=== PATIENT | female | born 1950 | race Caucasian/White ===

== ENCOUNTER 2017-08-28 20:15 | Emergency (ER) | payer OTHER ==
[2017-08-28 20:58] VITALS: BP 117/71; PULSE 121; TEMP 101; BMI 40.2
--- NOTE | 2017-08-28 21:06 | PDOC ---
History of Present Illness - General Chief Complaint: Cold Symptoms Stated Complaint: FLU LIKE SYMPTOMS Time Seen by Provider: 08/28/17 20:42 History Source: Patient - History of Present Illness Initial Comments: 08/28/17 21:01 65F with h/o HTN and multiple brain aneurisms including ruptured aneurism causing hemorrhagic stroke 5 years ago BIBA for generalized weakness and fever. Patient is ambulatory at baseline with some right-side motor and cognitive deficit at baseline. PAtient lives with son with Aide comes to help patient 12h a day every day. Aide thought patient couldn't walk on her own today so she called EMS. Past History - Past Medical History Allergies/Adverse Reactions: Allergies Allergy/AdvReac Type Severity Reaction Status Date / Time No Known Allergies Allergy Verified 08/28/17 20:56 Home Medications: Ambulatory Orders Amlodipine Besylate [Norvasc -] 5 mg PO DAILY 03/30/12 Calcium Carb/Vit D3/Minerals [Calcium +D & Min Chew Tab] 1 each PO DAILY Levetiracetam [Keppra Oral Solution -] 500 mg PO DAILY 03/30/12 Magnesium Hydrox 2400MG/30Ml [Milk Of Magnesia] 400 mg PO DAILY 03/30/12 Multivitamin [Multi-Day Vitamins] 1 each PO DAILY 03/30/12 Sertraline HCl [Zoloft] 50 mg PO DAILY 03/30/12 Polyethylene Glycol 3350 [Miralax 255 gm Btl] 17 gm PO DAILY #1 bottle 05/31/15 Oseltamivir Phosphate [Tamiflu] 75 mg PO BID #10 capsule 08/29/17 CVA: Yes Dementia: Yes HTN: Yes Hypercholesterolemia: Yes - Immunization History Td Vaccination: Yes TDAP Vaccination: Yes Immunization Up to Date: No - Suicide/Smoking/Psychosocial Hx Smoking Status: No Smoking History: Never smoked Have you smoked in the past 12 months: No Number of Cigarettes Smoked Daily: 0 Information on smoking cessation initiated: No Hx Alcohol Use: No Drug/Substance Use Hx: No Review of Systems - Review of Systems Able to Perform ROS?: No (dementia) *Physical Exam - Vital Signs Last Vital Signs Temp Pulse Resp BP Pulse Ox 101 F H 121 H 14 117/71 90 L 08/28/17 20:56 08/28/17 20:56 08/28/17 20:56 08/28/17 20:56 08/28/17 20:56 - Physical Exam General Appearance: Yes: Nourished, Appropriately Dressed, Apparent Distress HEENT: positive: EOMI, DELMAR, Normal ENT Inspection Neck: negative: Tender Respiratory/Chest: positive: Lungs Clear, Normal Breath Sounds. negative: Chest Tender, Respiratory Distress Cardiovascular: positive: Regular Rhythm, Regular Rate, S1, S2 Gastrointestinal/Abdominal: negative: Normal Bowel Sounds, Tender Musculoskeletal: positive: Normal Inspection Extremity: positive: Normal Capillary Refill, Normal Inspection, Normal Range of Motion Neurologic: positive: interactive media marketing director II-XII NML intact, Fully Oriented, Alert ED Treatment Course - LABORATORY CBC & Chemistry Diagram: 08/28/17 21:38 08/28/17 21:38 - RADIOLOGY Radiology Studies Ordered: Category Date Time Status HEAD CT WITHOUT CONTRAST [CT] Stat CT Scan 08/28/17 20:59 Ordered CHEST X-RAY PORTABLE* [RAD] Stat Radiology 08/28/17 20:58 Ordered Medical Decision Making - Medical Decision Making 08/28/17 23:04 65F with h/o HTN and multiple brain aneurisms including ruptured aneurism causing hemorrhagic stroke 5 years ago BIBA for generalized weakness and fever. Septic workup ordered. 08/28/17 23:13 08/29/17 01:40 All basic labs within normal limits. Head Ct: No CT evidence of acute intracranial hemorrhage. Bilateral middle cerebral artery bifurcation aneurysmectomies. Extensive left cerebral encephalomalacia. Right inferior frontal encephalomalacia Chronic left occipital/temporal cortical infarct. Chest and Abd CTA show no evidence of acute pathology in the chest, abdomen and pelvis. 08/29/17 01:41 08/29/17 04:48 Flu positive. gave tamiflu and D/C *DC/Admit/Observation/Transfer Diagnosis at time of Disposition: Influenza A virus present - Discharge Dispostion Disposition: HOME Admit: No - Prescriptions Prescriptions: Oseltamivir Phosphate [Tamiflu] 75 mg PO BID #10 capsule - Referrals Referrals: Brant Franklin MD [Primary Care Provider] - - Patient Instructions Printed Discharge Instructions: How to Avoid a Cold or Flu, Influenza, DI for Influenza -- Adult Additional Instructions: Please follow up with your primary physician within 1-2 days. Come back to the ER for any new, worsening or concerning symptoms - Post Discharge Activity
--- NOTE | 2017-08-28 21:12 | PDOC ---
Attending Attestation - Resident Resident Name: Nicolás Rivera - ED Attending Attestation I have performed the following: I have examined & evaluated the patient, The case was reviewed & discussed with the resident, I agree w/resident's findings & plan, Exceptions are as noted <Jese Leblanc - Last Filed: 08/28/17 21:12> - HPI HPI: 08/28/17 21:16 The patient is a 66 year old female, nonverbal, with a significant past medical history of multiple brain aneurysms, hemorrhagic stroke 5 years ago, hypertension, and dementia, who presents to the emergency department with son for evaluation of weakness and fever for the past 24 hours. The patients STRIP MINE SUPERVISOR reported to the patients son that his mother has been weak with walking and febrile since yesterday. Allergies: NKDA 08/28/17 21:17 Documentation prepared by Ifeoma Lua, acting as medical assistant prn for Jese Leblanc DO <Ifeoma Lua - Last Filed: 08/28/17 23:47>
[2017-08-28 21:51] LABS: BASO % 0.7 % (0-2.0); EOS % 0.1 % (0-4.5); HEMATOCRIT 44.3 % (32.4-45.2); HEMOGLOBIN 14.7 GM/dL (10.7-15.3); LYMPH % 18.1 % (8-40); MCH 30.1 pg (25.7-33.7); MCHC 33.3 g/dl (32.0-36.0); MEAN CELL VOLUME 90.5 fl (80-96); MEAN PLT VOLUME 8.1 fl (7.5-11.1); MONO % 7.8 % (3.8-10.2); NEUT % 73.3 % (42.8-82.8); PLATELET COUNT 300 K/MM3 (134-434); RDW 14.7 % (11.6-15.6); WHITE BLOOD COUNT 10.2 K/mm3 (4.0-10.0)
[2017-08-28 22:04] LABS: INR 1.19 (0.82-1.09); PROTHROMBIN TIME (PATIENT) 13.5 SEC (9.98-11.88)
[2017-08-28 22:06] LABS: ACTIVATED PTT 31.6 SECONDS (26.9-34.4)
[2017-08-28 22:11] LABS: URINE APPEARANCE SLCLOUDY; URINE BILIRUBIN NEGATIVE (NEGATIVE); URINE BLOOD NEGATIVE (NEGATIVE); URINE COLOR AMBER; URINE GLUCOSE (UA) NEGATIVE (NEGATIVE); URINE KETONE TRACE (NEGATIVE); URINE LEUK ESTERASE TRACE (NEGATIVE); URINE NITRITE NEGATIVE (NEGATIVE); URINE PROTEIN NEGATIVE (NEGATIVE)
[2017-08-28 22:16] LABS: EPI CELLS RARE /HPF (FEW); URINE BACTERIA RARE /hpf (NONE SEEN); URINE MUCUS RARE
[2017-08-28 22:36] LABS: ALBUMIN 3.5 g/dl (3.4-5.0); ANION GAP 9 (8-16); BILIRUBIN,TOTAL 0.6 mg/dL (0.2-1.0); BLOOD UREA NITROGEN 19 mg/dL (7-18); CALCIUM 8.5 mg/dL (8.5-10.1); CHLORIDE 101 mmol/L (98-107); CO2 25 mmol/L (21-32); CREATININE 1.2 mg/dL (0.55-1.02); GLUCOSE,RANDOM 164 mg/dL (74-106); SODIUM 135 mmol/L (136-145); TOT PROT 7.9 g/dl (6.4-8.2)
[2017-08-28 22:42] LABS: ALK PHOS 118 U/L (45-117); SGPT/ALT 82 U/L (12-78)
[2017-08-28 22:48] LABS: POTASSIUM 3.9 mmol/L (3.5-5.1); SGOT/AST 72 U/L (15-37)
[2017-08-29 00:35] LABS: VENOUS PC02 33.3 mmHg (38-52); VENOUS PH 7.45 (7.32-7.42); VENOUS PO2 45.2 mmHg (28-48)
[2017-08-29] MEDS ORDERED: OSELTAMIVIR PHOSPHATE 75 MG CAPSULE PO ONE (02:28)
[2017-08-29] MEDS ORDERED: OSELTAMIVIR PHOSPHATE 75 MG CAPSULE ONE (02:31)
--- NOTE | 2017-08-29 12:29 | EKG ---
Test Reason : Blood Pressure : / mmHG Vent. Rate : 111 BPM Atrial Rate : 111 BPM P-R Int : 128 ms QRS Dur : 070 ms QT Int : 310 ms P-R-T Axes : 036 -20 034 degrees QTc Int : 421 ms SINUS TACHYCARDIA POSSIBLE LEFT ATRIAL ENLARGEMENT BORDERLINE ECG WHEN COMPARED WITH ECG OF 08-AUG-2004 14:08, NO SIGNIFICANT CHANGE WAS FOUND Confirmed by GEORGI SCOTT MD ([id number]) on 08/29/2017 12:29:20 PM Referred By: Confirmed By:GEORGI SCOTT MD
== END 2017-08-29 04:59 | disposition home or self-care (01) ==
LOC: JER 20:15
DX: J10.1 Influenza due to other identified influenza virus with other respiratory manifestations (principal); F03.90 Unspecified dementia, unspecified severity, without behavioral disturbance, psychotic disturbance, mood disturbance, and anxiety; I69.851 Hemiplegia and hemiparesis following other cerebrovascular disease affecting right dominant side; I69.81 Cognitive deficits following other cerebrovascular disease
CPT/HCPCS: 36415; 70450-TC; 71045-TC; 71275-TC; 80053; 81003; 81015; 82550; 82803; 83605; 84484; 85025; 85610; 85730; 86850; 86900; 86901; 87040; 87086; 87804; 93005; 93010; 99281-25

== ENCOUNTER 2018-04-01 16:18 | Inpatient (IN) | payer OTHER ==
--- NOTE | 2018-04-01 16:22 | PDOC ---
Rapid Medical Evaluation Time Seen by Provider: 04/01/18 16:20 Medical Evaluation: Allergies Allergy/AdvReac Type Severity Reaction Status Date / Time No Known Allergies Allergy Verified 08/28/17 20:56 04/01/18 16:20 I have performed a brief in-person evaluation of this patient. The patient presents with a chief complaint of:R sided facial droop noted 45 min ago. Last known normal was at 2pm today. H/o ruptured brain aneurysm w/ hemorrhagic CVA ~5 years ago, HTN Pertinent physical exam findings:R sided facial droop I have ordered the following:CTH/labs. Pt taken immediately to main ED and then to CT. Charge nurse, Dr Guzman and resident aware The patient will proceed to the ED for further evaluation. Discharge Disposition - Diagnosis Facial droop - Referrals - Patient Instructions - Post Discharge Activity
[2018-04-01 16:25] VITALS: BMI 82.6
--- NOTE | 2018-04-01 16:26 | PDOC ---
History of Present Illness - General History Source: Family (In addition used her health aide) Exam Limitations: Language Barrier, Other (aphasia) - History of Present Illness Initial Comments: 04/01/18 21:51 Ms. Smith is a 67 yo F with a hx of a CVA (hemorrhagix in 2012), HLD, and HTN who presented to the emergency department with facial drooping. Per her health aide, she was at baseline at 2 pm before her nap which went until 2:45 pm. Per the nursing health aide and son, she had baseline residual effects from her previous stroke. She has severe aphasia per the family and has rhythmic movement of her right thumb and leg. She has inability to see from her left eye and normally is not full oriented to time and place. In 2012, she had a hemorrhagic stroke from a ruptured brain aneurysm. Per the patient, she denies the following: fever, headache, SOB, chest pain, and abdominal pain. Pmhx: Multiple brain aneurysms, HTN, and HLD Shx: 2013 bilateral craniotomy to clip aneurysms Meds: Lisinopril, Vitamin D, Simvastatin. Allergies: NKDA Social hx: Denies smoking, alcohol, and drug use. 04/01/18 22:08 <Moy Castillo - Last Filed: 04/01/18 21:50> <Reshma Chua - Last Filed: 04/01/18 22:23> - General Chief Complaint: CVA/TIA Stated Complaint: facial droop Time Seen by Provider: 04/01/18 16:20 NIH Stroke Scale - Last Known Well Date/Time & Onset Date Last Known Well: 04/01/18 Time Last Known Well: 14:00 - Initial Evaluation Level of consciousness: Alert Ask patient the month and their age: Both incorrect (at baseline per the health aide and son) Ask patient to open & close eyes; make fist and let go: Obeys both correctly Best gaze (horizontal eye movement): Normal Visual field testing: Complete hemianopia (inability to see from left eye. per nursing faculty and son, this is baseline) Facial paresis (Show teeth/raise eyebrows/close eyes tight): Partial paralysis ( total or near paralysis of lower face) (right lower face paralysis. inability to lift eyebrows. per family and nursing faculty this is NEW.) Motor Function: Left Arm: Drift (baseline) Motor Function: Right Arm: Drift (baseline) Motor Function: Left Leg: Drift (baseline) Motor Function: Right Leg: Drift (baseline) Limb Ataxia: No ataxia Sensory(Use pinprick test arms,legs,trunk,face/side to side): Mild to moderate decrease in sensation Best language (Describe picture, name items, read sentences): Severe aphasia ( baseline per family since 2012 from previous CVA) Dysarthria (read several words): Mild to moderate slurring of words Extinction and Inattention: No abnormality - Total Score NIH Stroke Scale Score: 14 <Moy Castillo - Last Filed: 04/01/18 21:50> tPA Exclusion checklist 3-4.5h - Time Elapsed Date last known well: 04/01/18 Time last known well: 14:00 Elaspsed time: Day(s) and 7 Hour(s) and 50 Minutes - Thrombolytic Therapy Candidate Is patient eligible for thrombolytic therapy: No - Exclusion Criteria 3-4.5 hr SBP greater than 185 or DBP greater than 110mmHg despite tx: No Recent IC/spinal surgery,head trauma or stroke<3mos.: No Hx IC hemorrhage, IC neoplasm, AV malformation or aneurysm: Yes Active internal bleeding: No Blding diathesis(low plt ct, inc PTT,INR>1.7 or use of NOAC): No Symptoms suggest subarachnoid hemorrhage: No CT demonstrates multilobar infarct(>1/3 cerebral hemiphere): No Arterial puncture at noncompressible site in previous 7 days: No Blood glucose concentration less than 50mg/dL (2.7mmol/L): No - Relative Exclusion Criteria 3-4.5 hr Life expectancy <1 yr or severe co-morbid illness: No : No Patient/family refused: No Rapid improvement: No Stroke severity too mild: Yes Recent acute SD (w/in previous 3 months): No Seizure at onset with postictal residual neuro impairments: No Major surgery or serious trauma w/in previous 14 days: No Recent GI or hemorrhage (w/in previous 21 days): No - Add'l Relative Exclusion 3-4.5 hr Age > 80: No Hx of both diabetes AND prior ischemic stroke: No Taking an oral anticoagulant regardless of INR: No NIHSS >25: No - Ineligibility reason(s) Reasons No tPA given: See reason(s) noted above (Patient has a hx of a intracranial hemorrhage secondary to a ruptured aneurysm in 2013. In addition, new symptoms that were off from baseline included partial face paralysis of the right upper and lower face. Likely to be due to bells palsy vs CVA) <Moy Castillo - Last Filed: 04/01/18 21:50> Past History - Past Medical History CVA: Yes (and aneyurisms,TBI) COPD: No Dementia: Yes HTN: Yes Hypercholesterolemia: Yes - Immunization History Td Vaccination: Yes TDAP Vaccination: Yes Immunization Up to Date: No - Suicide/Smoking/Psychosocial Hx Smoking Status: No Smoking History: Never smoked Have you smoked in the past 12 months: No Number of Cigarettes Smoked Daily: 0 Information on smoking cessation initiated: No Hx Alcohol Use: No Drug/Substance Use Hx: No Substance Use Type: None <Moy Castillo - Last Filed: 04/01/18 21:50> <Reshma Chua - Last Filed: 04/01/18 22:23> - Past Medical History Allergies/Adverse Reactions: Allergies Allergy/AdvReac Type Severity Reaction Status Date / Time No Known Allergies Allergy Verified 04/01/18 16:25 Home Medications: Ambulatory Orders Amlodipine Besylate [Norvasc -] 5 mg PO DAILY 03/30/12 Calcium Carb/Vit D3/Minerals [Calcium +D & Min Chew Tab] 1 each PO DAILY Magnesium Hydrox 2400MG/30Ml [Milk Of Magnesia] 400 mg PO DAILY 03/30/12 Multivitamin [Multi-Day Vitamins] 1 each PO DAILY 03/30/12 Sertraline HCl [Zoloft] 50 mg PO DAILY 03/30/12 levETIRAcetam [Keppra Oral Solution -] 500 mg PO DAILY 03/30/12 Polyethylene Glycol 3350 [Miralax 255 gm Btl] 17 gm PO DAILY #1 bottle 05/31/15 Oseltamivir Phosphate [Tamiflu] 75 mg PO BID #10 capsule 08/29/17 Review of Systems - Review of Systems Able to Perform ROS?: No (unwilling to participate) <Moy Castillo - Last Filed: 04/01/18 21:50> *Physical Exam - Vital Signs Last Vital Signs Temp Pulse Resp BP Pulse Ox 98.5 F 93 H 19 148/56 97 04/01/18 16:22 04/01/18 16:22 04/01/18 16:22 04/01/18 16:22 04/01/18 16:22 - Physical Exam Comments: 04/01/18 22:12 see stroke scale notes General Appearance: Yes: Nourished, Appropriately Dressed HEENT: positive: EOMI, DELMAR Respiratory/Chest: positive: Lungs Clear, Normal Breath Sounds Cardiovascular: positive: Regular Rhythm, Regular Rate, S1, S2. negative: Systolic Murmur Gastrointestinal/Abdominal: positive: Normal Bowel Sounds. negative: Tender Musculoskeletal: positive: Other. negative: CVA Tenderness Extremity: positive: Normal Capillary Refill Integumentary: positive: Normal Color, Dry, Warm Neurologic: positive: Alert, Motor Strength 5/5. negative: girls tennis coach II-XII NML intact (right facial droop in lower area. Inability to raise right eyebrows), Fully Oriented <Moy Castillo - Last Filed: 04/01/18 21:50> - Vital Signs Last Vital Signs Temp Pulse Resp BP Pulse Ox 98.5 F 88 20 123/84 95 04/01/18 16:22 04/01/18 21:00 04/01/18 21:00 04/01/18 21:00 04/01/18 21:00 <Reshma Chua - Last Filed: 04/01/18 22:23> ED Treatment Course - LABORATORY CBC & Chemistry Diagram: 04/01/18 17:10 04/01/18 17:10 <Moy Castillo - Last Filed: 04/01/18 21:50> - LABORATORY CBC & Chemistry Diagram: 04/01/18 17:10 04/01/18 17:10 - ADDITIONAL ORDERS Additional order review: Laboratory Results 04/01/18 04/01/18 04/01/18 17:20 17:15 17:10 PT with INR INR Sodium 141 Potassium 4.0 Chloride 106 Carbon Dioxide 27 Anion Gap 8 BUN 10 Creatinine 0.8 Creat Clearance w eGFR > 60 Random Glucose 130 H Calcium 9.0 Total Bilirubin 0.3 AST 49 H ALT 90 H Alkaline Phosphatase 125 H Creatine Kinase 101 Troponin I < 0.02 Total Protein 7.4 Albumin 3.4 Triglycerides Cholesterol Total LDL Cholesterol HDL Cholesterol Urine Color Yellow Urine Appearance Slcloudy Urine pH 5.0 Ur Specific [place] 1.019 Urine Protein Negative Urine Glucose (UA) Negative Urine Ketones Negative Urine Blood Negative Urine Nitrite Positive Urine Bilirubin Negative Urine Urobilinogen Negative Ur Leukocyte Esterase 1+ H Urine WBC (Auto) 52 Urine RBC (Auto) 1 Ur Epithelial Cells Few Urine Bacteria Rare Urine Mucus Rare Blood Type O POSITIVE Antibody Screen Negative 04/01/18 04/01/18 17:10 17:07 PT with INR 12.00 INR 1.06 Sodium Potassium Chloride Carbon Dioxide Anion Gap BUN Creatinine Creat Clearance w eGFR Random Glucose Calcium Total Bilirubin AST ALT Alkaline Phosphatase Creatine Kinase Troponin I Total Protein Albumin Triglycerides 415 H Cholesterol 192 Total LDL Cholesterol 124 H HDL Cholesterol 32 L Urine Color Urine Appearance Urine pH Ur Specific [place] Urine Protein Urine Glucose (UA) Urine Ketones Urine Blood Urine Nitrite Urine Bilirubin Urine Urobilinogen Ur Leukocyte Esterase Urine WBC (Auto) Urine RBC (Auto) Ur Epithelial Cells Urine Bacteria Urine Mucus Blood Type Antibody Screen 04/01/18 17:10 RBC 4.71 MCV 90.7 MCHC 33.5 RDW 14.5 MPV 7.9 Neutrophils % 40.3 L D Lymphocytes % 47.4 H D Monocytes % 8.7 Eosinophils % 2.8 D Basophils % 0.8 - RADIOLOGY Radiology Studies Ordered: Category Date Time Status BRAIN CTA [CT] Stat CT Scan 04/01/18 18:30 Taken <Reshma Chua - Last Filed: 04/01/18 22:23> Medical Decision Making - Medical Decision Making 04/01/18 21:40 CT of the brain shows nonvisualization of the left posterior cerebral artery was likely occluded in the past. Otherwise, unremarkable CT angiogram of the brain. Large area of encephalomalacia within the left frontal lobe with small areas septal malacia within the left occipital and inferior right frontal lobes UA shows positive for nitrates and 52,000, WBCs patient will be treated with antibiotics. During the patient's stay her right eyelid has started to drop significantly and she is having difficulties holding her eyelid open consistent with a Bartlett's palsy picture. <Reshma Chua - Last Filed: 04/01/18 22:23> *DC/Admit/Observation/Transfer <Moy Castillo - Last Filed: 04/01/18 21:50> - Discharge Dispostion Decision to Admit order: Yes <Reshma Chua - Last Filed: 04/01/18 22:23> Diagnosis at time of Disposition: Facial droop UTI (urinary tract infection) Qualifiers: Urinary tract infection type: site unspecified Hematuria presence: without hematuria Qualified Code(s): N39.0 - Urinary tract infection, site not specified - Discharge Dispostion Condition at time of disposition: Good - Referrals Referrals: Brant Franklin MD [Primary Care Provider] -
--- NOTE | 2018-04-01 17:04 | PDOC ---
Attending Attestation - Resident Resident Name: Moy Castillo - ED Attending Attestation I have performed the following: I have examined & evaluated the patient, The case was reviewed & discussed with the resident, I agree w/resident's findings & plan, Exceptions are as noted - HPI HPI: 04/01/18 17:03 67-year-old female brought in by family after the home health aide found her with a facial droop after her nap. The last time she was seen well was 2 PM Past medical history significant for a ruptured aneurysm in 2012, resulting in hemianopsia, blindness, aphasia - Physicial Exam PE: 04/01/18 19:19 67-year-old female brought in by family, and a after he was found she had a right sided facial weakness at 2:30 PM Head normocephalic/atraumatic. Eyes patient has a right-sided field cut bilaterally, status post her aneurysm in 2012. Neck supple Lungs are clear to auscultation. CVS regular rate and rhythm S1, S2 Protuberant abdomen, nontender. Extremities no pitting edema, no erythema. Skin warm and dry. extremikties can raiseher legs and arms off glendy bed Neuro patient is alert, aphasic at baseline, she does follow directions when asked to raise her arms. There is no obvious drift is seen in her extremities She is ambulatory with help because of her blindness - Medical Decision Making 04/01/18 19:23 CAT scan of the head did not show any acute bleed or infacrt There is Evidence of prior craniotomies. It did show extensive encephalomalacia in the frontal parietal region with aneurysmal clips case discussed with the neurologist, Dr. 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
[2018-04-01 17:29] LABS: BASO % 0.8 % (0-2.0); EOS % 2.8 % (0-4.5); HEMATOCRIT 42.7 % (32.4-45.2); HEMOGLOBIN 14.3 GM/dL (10.7-15.3); LYMPH % 47.4 % (8-40); MCH 30.4 pg (25.7-33.7); MCHC 33.5 g/dl (32.0-36.0); MEAN CELL VOLUME 90.7 fl (80-96); MEAN PLT VOLUME 7.9 fl (7.5-11.1); MONO % 8.7 % (3.8-10.2); NEUT % 40.3 % (42.8-82.8); PLATELET COUNT 331 K/MM3 (134-434); RBC 4.71 M/mm3 (3.60-5.2); RDW 14.5 % (11.6-15.6); WHITE BLOOD COUNT 6.5 K/mm3 (4.0-10.0)
[2018-04-01] MEDS: SODIUM CHLORIDE 1,000 ML IV SCH (17:31)
[2018-04-01 17:54] LABS: ALBUMIN 3.4 g/dl (3.4-5.0); ANION GAP 8 (8-16); BLOOD UREA NITROGEN 10 mg/dL (7-18); CHLORIDE 106 mmol/L (98-107); CO2 27 mmol/L (21-32); CREATININE 0.8 mg/dL (0.55-1.02); GLUCOSE,RANDOM 130 mg/dL (74-106); SGOT/AST 49 U/L (15-37); SGPT/ALT 90 U/L (12-78); SODIUM 141 mmol/L (136-145)
[2018-04-01 17:58] LABS: ALK PHOS 125 U/L (45-117); BILIRUBIN,TOTAL 0.3 mg/dL (0.2-1.0); TOT PROT 7.4 g/dl (6.4-8.2)
[2018-04-01 18:32] LABS: CHOLESTEROL 192 mg/dL (50-200); HDL CHOLESTEROL 32 mg/dL (40-60); TRIGLYCERIDES 415 mg/dL (35-160)
[2018-04-01 18:33] LABS: INR 1.06 (0.83-1.09)
[2018-04-01 18:38] LABS: URINE APPEARANCE SLCLOUDY; URINE BILIRUBIN NEGATIVE (<2.0 mg/dL); URINE COLOR YELLOW; URINE GLUCOSE (UA) NEGATIVE (NEGATIVE); URINE KETONE NEGATIVE (NEGATIVE); URINE NITRITE POSITIVE (NEGATIVE); URINE PROTEIN NEGATIVE (NEGATIVE); URINE UROBILINOGEN NEGATIVE mg/dL (0.2-1.0)
[2018-04-01 18:48] LABS: URINE LEUK ESTERASE 1+ (NEGATIVE)
[2018-04-01 19:02] LABS: EPI CELLS FEW /HPF (FEW); URINE BACTERIA RARE /hpf (NONE SEEN); URINE MUCUS RARE
[2018-04-01] MEDS ORDERED: valACYclovir HCL 1000 MG TABLET PO ONE (21:32)
[2018-04-01] MEDS ORDERED: predniSONE 20 MG TABLET (UD) PO ONE (21:33)
[2018-04-01] MEDS ORDERED: valACYclovir HCL 500 MG TABLET (FP) ONE (22:24)
[2018-04-01] MEDS ORDERED: predniSONE 20 MG TABLET (UD) ONE (22:24)
--- NOTE | 2018-04-02 02:29 | HP ---
CHIEF COMPLAINT: PCP: dr. umberto chris HISTORY OF PRESENT ILLNESS: Ms. Smith is a 67 yo F with a hx of a CVA (hemorrhagix in 2012), HLD, and HTN who presented to the emergency department with facial drooping. Per her health aide, she was at baseline at 2 pm before her nap which went until 2:45 pm. Per the nursing health aide and son, she had baseline residual effects from her previous stroke. She has severe aphasia per the family and has rhythmic movement of her right thumb and leg. She has inability to see from her left eye and normally is not full oriented to time and place. In 2013, she had a hemorrhagic stroke from a ruptured brain aneurysm. Per the patient, she denies the following: fever, headache, SOB, chest pain, and abdominal pain. ER course was notable for: (1) Chest xray- no acute process (2) CT Brain- No acute ICH (3) Recent Travel: None PAST MEDICAL HISTORY: Multiple brain aneurysms, HTN, and HLD Hemorrhagic CVA 2012 PAST SURGICAL HISTORY: 2013 bilateral craniotomy to clip aneurysms Social History: Smoking: Never Alcohol: None Drugs: None Lives with family Family History: Allergies No Known Allergies Allergy (Verified 04/01/18 16:25) HOME MEDICATIONS: Home Medications Medication Instructions Recorded Amlodipine Besylate [Norvasc -] 5 mg PO DAILY 03/30/12 Calcium Carb/Vit D3/Minerals 1 each PO DAILY 03/30/12 [Calcium +D & Min Chew Tab] Magnesium Hydrox 2400MG/30Ml [Milk 400 mg PO DAILY 03/30/12 Of Magnesia] Multivitamin [Multi-Day Vitamins] 1 each PO DAILY 03/30/12 Sertraline HCl [Zoloft] 50 mg PO DAILY 03/30/12 levETIRAcetam [Keppra Oral 500 mg PO DAILY 03/30/12 Solution -] Polyethylene Glycol 3350 [Miralax 17 gm PO DAILY #1 bottle 05/31/15 255 gm Btl] Oseltamivir Phosphate [Tamiflu] 75 mg PO BID #10 capsule 08/29/17 REVIEW OF SYSTEMS CONSTITUTIONAL: Absent: fever, chills, diaphoresis, generalized weakness, malaise, loss of appetite, weight change HEENT: Absent: rhinorrhea, nasal congestion, throat pain, throat swelling, difficulty swallowing, mouth swelling, ear pain, eye pain, visual changes CARDIOVASCULAR: Absent: chest pain, syncope, palpitations, irregular heart rate, lightheadedness , peripheral edema RESPIRATORY: Absent: cough, shortness of breath, dyspnea with exertion, orthopnea, wheezing, stridor, hemoptysis GASTROINTESTINAL: Absent: abdominal pain, abdominal distension, nausea, vomiting, diarrhea, constipation, melena, hematochezia GENITOURINARY: Absent: dysuria, frequency, urgency, hesitancy, hematuria, flank pain, genital pain MUSCULOSKELETAL: Absent: myalgia, arthralgia, joint swelling, back pain, neck pain SKIN: Absent: rash, itching, pallor HEMATOLOGIC/IMMUNOLOGIC: Absent: easy bleeding, easy bruising, lymphadenopathy, frequent infections ENDOCRINE: Absent: unexplained weight gain, unexplained weight loss, heat intolerance, cold intolerance NEUROLOGIC: right facial droop Absent: headache, focal weakness or paresthesias, dizziness, unsteady gait, seizure, mental status changes, bladder or bowel incontinence PSYCHIATRIC: Absent: anxiety, depression, suicidal or homicidal ideation, hallucinations. PHYSICAL EXAMINATION Vital Signs - 24 hr 04/01/18 04/01/18 16:22 21:00 Temperature 98.5 F Pulse Rate 93 H Pulse Rate [ 88 Apical] Respiratory 19 20 Rate Blood Pressure 148/56 Blood Pressure 123/84 [Right Arm] O2 Sat by Pulse 97 95 Oximetry (%) GENERAL: Awake, alert at baseline, in no acute distress. HEAD: Normal with no signs of trauma. EYES: Pupils equal, round and reactive to light, sclera anicteric, conjunctiva clear. No lid lag. right eye droop EARS, NOSE, THROAT: Ears normal, nares patent, oropharynx clear without exudates. Dry mucous membranes. NECK: Normal range of motion, supple without lymphadenopathy, JVD, or masses. LUNGS: Breath sounds equal, clear to auscultation bilaterally. No wheezes, and no crackles. No accessory muscle use. HEART: Regular rate and rhythm, normal S1 and S2 without murmur, rub or gallop. ABDOMEN: Soft, nontender, not distended, normoactive bowel sounds, no guarding, no rebound, no masses. No hepatomegaly or splenomegaly. MUSCULOSKELETAL: Normal range of motion at all joints. No bony deformities or tenderness. No CVA tenderness. UPPER EXTREMITIES: 2+ pulses, warm, well-perfused. No cyanosis. No clubbing. No peripheral edema. LOWER EXTREMITIES: 2+ pulses, warm, well-perfused. No calf tenderness. +2 pitting B/L peripheral edema. NEUROLOGICAL: Cranial nerves II-XII intact. Normal speech. Gait not observed PSYCHIATRIC: Cooperative. Good eye contact. Appropriate mood and affect. SKIN: Warm, dry, normal turgor, no rashes or lesions noted, normal capillary refill. Laboratory Results - last 24 hr 04/01/18 04/01/18 04/01/18 17:07 17:10 17:10 WBC 6.5 RBC 4.71 Hgb 14.3 Hct 42.7 MCV 90.7 MCH 30.4 MCHC 33.5 RDW 14.5 Plt Count 331 MPV 7.9 Absolute Neuts (auto) 2.6 Neutrophils % 40.3 L D Lymphocytes % 47.4 H D Monocytes % 8.7 Eosinophils % 2.8 D Basophils % 0.8 Nucleated RBC % 0 PT with INR 12.00 INR 1.06 Sodium Potassium Chloride Carbon Dioxide Anion Gap BUN Creatinine Creat Clearance w eGFR Random Glucose Calcium Total Bilirubin AST ALT Alkaline Phosphatase Creatine Kinase Troponin I Total Protein Albumin Triglycerides 415 H Cholesterol 192 Total LDL Cholesterol 124 H HDL Cholesterol 32 L Urine Color Urine Appearance Urine pH Ur Specific [place] Urine Protein Urine Glucose (UA) Urine Ketones Urine Blood Urine Nitrite Urine Bilirubin Urine Urobilinogen Ur Leukocyte Esterase Urine WBC (Auto) Urine RBC (Auto) Ur Epithelial Cells Urine Bacteria Urine Mucus Blood Type Antibody Screen 04/01/18 04/01/18 04/01/18 17:10 17:15 17:20 WBC RBC Hgb Hct MCV MCH MCHC RDW Plt Count MPV Absolute Neuts (auto) Neutrophils % Lymphocytes % Monocytes % Eosinophils % Basophils % Nucleated RBC % PT with INR INR Sodium 141 Potassium 4.0 Chloride 106 Carbon Dioxide 27 Anion Gap 8 BUN 10 Creatinine 0.8 Creat Clearance w eGFR > 60 Random Glucose 130 H Calcium 9.0 Total Bilirubin 0.3 AST 49 H ALT 90 H Alkaline Phosphatase 125 H Creatine Kinase 101 Troponin I < 0.02 Total Protein 7.4 Albumin 3.4 Triglycerides Cholesterol Total LDL Cholesterol HDL Cholesterol Urine Color Yellow Urine Appearance Slcloudy Urine pH 5.0 Ur Specific [place] 1.019 Urine Protein Negative Urine Glucose (UA) Negative Urine Ketones Negative Urine Blood Negative Urine Nitrite Positive Urine Bilirubin Negative Urine Urobilinogen Negative Ur Leukocyte Esterase 1+ H Urine WBC (Auto) 52 Urine RBC (Auto) 1 Ur Epithelial Cells Few Urine Bacteria Rare Urine Mucus Rare Blood Type O POSITIVE Antibody Screen Negative ASSESSMENT/PLAN: 67 y/o woman Admitted for CVA/TIA new onset of symptoms for their evaluation of the medical condition. Will Admit to Telemetry NIHSS [address] Head-reviewed Appreciate Neurology consult HOB elevated NPO Swallow eval Monitor CBC, BMP TSH, B12, Folic in am Seizure precautions Will resume meds post swallow eval and neuro eval Hospitalist Screening - Colonoscopy Questionnaire Colonoscopy Questionnaire: Colonoscopy Questionnaire
[2018-04-02 07:19] LABS: BASO % 0.3 % (0-2.0); EOS % 0.1 % (0-4.5); HEMATOCRIT 41.1 % (32.4-45.2); HEMOGLOBIN 14.1 GM/dL (10.7-15.3); LYMPH % 24.3 % (8-40); MCH 31.4 pg (25.7-33.7); MCHC 34.4 g/dl (32.0-36.0); MEAN CELL VOLUME 91.2 fl (80-96); MEAN PLT VOLUME 7.6 fl (7.5-11.1); MONO % 1.4 % (3.8-10.2); NEUT % 73.9 % (42.8-82.8); PLATELET COUNT 311 K/MM3 (134-434); RDW 14.4 % (11.6-15.6)
[2018-04-02 07:56] VITALS: TEMP 98.2
[2018-04-02 08:39] LABS: CHLORIDE 106 mmol/L (98-107); POTASSIUM 4.1 mmol/L (3.5-5.1); SODIUM 140 mmol/L (136-145)
[2018-04-02] MEDS: SODIUM CHLORIDE 1,000 ML IV SCH (08:59)
--- NOTE | 2018-04-02 09:08 | CON.NEURO ---
Consult - Alcohol/Substance Use Hx Alcohol Use: No - Smoking History Smoking history: Never smoked Have you smoked in the past 12 months: No Aproximately how many cigarettes per day: 0 Home Medications - Allergies Allergies/Adverse Reactions: Allergies Allergy/AdvReac Type Severity Reaction Status Date / Time No Known Allergies Allergy Verified 04/01/18 16:25 - Home Medications Home Medications: Ambulatory Orders Amlodipine Besylate [Norvasc -] 5 mg PO DAILY 03/30/12 Calcium Carb/Vit D3/Minerals [Calcium +D & Min Chew Tab] 1 each PO DAILY Magnesium Hydrox 2400MG/30Ml [Milk Of Magnesia] 400 mg PO DAILY 03/30/12 Multivitamin [Multi-Day Vitamins] 1 each PO DAILY 03/30/12 Sertraline HCl [Zoloft] 50 mg PO DAILY 03/30/12 levETIRAcetam [Keppra Oral Solution -] 500 mg PO DAILY 03/30/12 Polyethylene Glycol 3350 [Miralax 255 gm Btl] 17 gm PO DAILY #1 bottle 05/31/15 Oseltamivir Phosphate [Tamiflu] 75 mg PO BID #10 capsule 08/29/17 Physical Exam-Neuro Vital Signs: Vital Signs Temperature 98.2 F 04/02/18 05:00 Pulse Rate 73 04/02/18 05:00 Respiratory Rate 18 04/02/18 05:00 Blood Pressure 120/74 04/02/18 05:00 O2 Sat by Pulse Oximetry (%) 95 04/01/18 22:10 Labs: CBC, BMP 04/02/18 06:10 04/02/18 06:10 INR, PTT INR 1.06 (0.83-1.09) 04/01/18 17:10 Assessment/Plan cc right sided facial droopiness HPI 67 year old female hsitory of stroke in 2012 and had bilateral aneursymal clipping done at [facility]. Patient found her right side face droopiness. At baseline she has right sided hemianopsia and aphasia and she is able to walk and use her upper extremity. Paitnet denies any headhace , trauma or fever. 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 There is no new neurological symptoms. Pmhx: Multiple brain aneurysms, HTN, and HLD Shx: 2013 bilateral craniotomy to clip aneurysms Meds: Lisinopril, Vitamin D, Simvastatin. Allergies: NKDA Social hx: Denies smoking, alcohol, and drug use. Neurological Examination Alert follow command, orietned x 1 eomi, right sided LMN facial palsy, pupils reactive there is right sided hemianopsia, due to aphasia at time she has difficulty repsonding and has inconsistent answer moving all extremity ct head unremarkable cta wa sunremarkable Assessment- Bilateral aneurosmal clipping ,, with residual right hemianopsia and aphasia, no acute findings identified , seems to be stable 2. right sided bells palsy Plan- suggest to continue prednisone 40 mg for five days - Neurosurgery consult as she has extensive history of aneursym Thanking you so much Dustin Merrill MD
[2018-04-02 09:14] VITALS: BP 138/96; PULSE 81
[2018-04-02 09:52] LABS: ALBUMIN 3.4 g/dl (3.4-5.0); ALK PHOS 115 U/L (45-117); ANION GAP 8 (8-16); BILIRUBIN,TOTAL 0.3 mg/dL (0.2-1.0); BLOOD UREA NITROGEN 9 mg/dL (7-18); CALCIUM 9.1 mg/dL (8.5-10.1); CO2 26 mmol/L (21-32); CREATININE 0.8 mg/dL (0.55-1.02); GLUCOSE,RANDOM 154 mg/dL (74-106); MAGNESIUM 2.3 mg/dL (1.8-2.4); PHOSPHOROUS 3.4 mg/dL (2.5-4.9); SGOT/AST 39 U/L (15-37); SGPT/ALT 78 U/L (12-78); TOT PROT 7.3 g/dl (6.4-8.2)
[2018-04-02] MEDS ORDERED: predniSONE 20 MG TABLET (UD) PO SCH (10:00)
[2018-04-02] MEDS ORDERED: CEFTRIAXONE 1 GM in DEXTROSE 5%-WATER - 50 ML IVPB SCH (10:00)
--- NOTE | 2018-04-02 10:20 | PN ---
Progress Note, Physician Chief Complaint: see dc summary - Current Medication List Current Medications: Active Medications Sodium Chloride (Normal Saline -) 1,000 mls @ 42 mls/hr IV ASDIR DARIN Last Admin: 04/02/18 08:59 Dose: 42 mls/hr Ceftriaxone Sodium 1 gm/ (Dextrose) 50 mls @ 100 mls/hr IVPB DAILY DARIN; Protocol Prednisone (Deltasone -) 40 mg PO DAILY DARIN - Objective Vital Signs: Vital Signs Temperature 98.2 F 04/02/18 05:00 Pulse Rate 81 04/02/18 09:12 Respiratory Rate 19 04/02/18 09:12 Blood Pressure 138/96 04/02/18 09:12 O2 Sat by Pulse Oximetry (%) 95 04/01/18 22:10 Labs: CBC, BMP 04/02/18 06:10 04/02/18 06:10 INR, PTT INR 1.06 (0.83-1.09) 04/01/18 17:10
--- NOTE | 2018-04-02 10:28 | EKG ---
Test Reason : Blood Pressure : / mmHG Vent. Rate : 084 BPM Atrial Rate : 084 BPM P-R Int : 130 ms QRS Dur : 078 ms QT Int : 386 ms P-R-T Axes : 043 -06 025 degrees QTc Int : 456 ms NORMAL SINUS RHYTHM NORMAL ECG WHEN COMPARED WITH ECG OF 28-AUG-2017 23:42, NO SIGNIFICANT CHANGE WAS FOUND Confirmed by EUGENE FERRO MD ([id number]) on 04/02/2018 10:28:15 AM Referred By: Confirmed By:EUGENE FERRO MD
[2018-04-02] MEDS ORDERED: predniSONE 20 MG TABLET (UD) ONE (10:30)
[2018-04-02] MEDS ORDERED: ARTIFICIAL TEARS (POLYVINYL ALCOHOL 1.4%) OPTH DROPS OU PRN (11:03)
--- NOTE | 2018-04-02 11:04 | DS ---
Physical Examination Vital Signs: Vital Signs Temperature 98.2 F 04/02/18 05:00 Pulse Rate 81 04/02/18 09:12 Respiratory Rate 19 04/02/18 09:12 Blood Pressure 138/96 04/02/18 09:12 O2 Sat by Pulse Oximetry (%) 95 04/01/18 22:10 Constitutional: Yes: No Distress, Calm HENT: Yes: Other (weak right side of face, unable to close right eye, rt facial droop) Cardiovascular: Yes: Regular Rate and Rhythm Respiratory: Yes: CTA Bilaterally Gastrointestinal: Yes: Normal Bowel Sounds, Soft. No: Tenderness Edema: No Labs: CBC, BMP 04/02/18 06:10 04/02/18 06:10 Discharge Summary Reason For Visit: UTI/FACIAL DROOP Current Active Problems Facial droop (Acute) UTI (urinary tract infection) (Acute) Hospital Course: Admitted for right facial droop - CT head did not show any acute findings CTA unremarkable per Neurology-- pt was seen by Neurology in ER She has a Neurosurgeon at [facility]- Dr Nobles who she will follow up with. UA positive for UTI-- pt also symptomatic Received IV Ceftriaxone here She ate her food , took her meds without difficulty limbs moving appropriately Pt aphasic-- spoke with her son who is at baseline Stable for dc home-- on po Prednisone for [place] palsy -- right Condition: Good - Instructions Referrals: Brant Franklin MD [Primary Care Provider] - Aldo Nobles [Non Staff, Medical] - Disposition: HOME - Home Medications Comprehensive Discharge Medication List: Ambulatory Orders Amlodipine Besylate [Norvasc -] 5 mg PO DAILY 03/30/12 Calcium Carb/Vit D3/Minerals [Calcium +D & Min Chew Tab] 1 each PO DAILY Magnesium Hydrox 2400MG/30Ml [Milk Of Magnesia] 400 mg PO DAILY 03/30/12 Multivitamin [Multi-Day Vitamins] 1 each PO DAILY 03/30/12 Sertraline HCl [Zoloft] 50 mg PO DAILY 03/30/12 levETIRAcetam [Keppra Oral Solution -] 500 mg PO DAILY 03/30/12 Polyethylene Glycol 3350 [Miralax 255 gm Btl] 17 gm PO DAILY #1 bottle 05/31/15 Oseltamivir Phosphate [Tamiflu] 75 mg PO BID #10 capsule 08/29/17
--- NOTE | 2018-04-02 11:27 | CONSULT ---
Admitting History and Physical - Primary Care Physician PCP: Margi Parr - Admission History of Present Illness: Per EMR: HISTORY OF PRESENT ILLNESS: Ms. Smith is a 67 yo F with a hx of a CVA (hemorrhagix in 2013), HLD, and HTN who presented to the emergency department with facial drooping. Per her health aide, she was at baseline at 2 pm before her nap which went until 2:45 pm. Per the nursing health aide and son, she had baseline residual effects from her previous stroke. She has severe aphasia per the family and has rhythmic movement of her right thumb and leg. She has inability to see from her left eye and normally is not full oriented to time and place. In 2013, she had a hemorrhagic stroke from a ruptured brain aneurysm. Per the patient, she denies the following: fever, headache, SOB, chest pain, and abdominal pain Neuro Assessment- Bilateral aneurosmal clipping ,, with residual right hemianopsia and aphasia, no acute findings identified 2. right sided bells palsy Selected Entries 04/02/18 05:00 Temperature 98.2 F Laboratory Tests 04/02/18 06:10 WBC 5.0 History Source: Family Member, Medical Record Limitations to Obtaining History: Language Barrier, Other (Aphasia/baseline) - Smoking History Smoking history: Never smoked Have you smoked in the past 12 months: No Aproximately how many cigarettes per day: 0 - Alcohol/Substance Use Hx Alcohol Use: No History - Admission Reason For Visit: UTI/FACIAL DROOP - Diagnostics X-ray: Report Reviewed CT Scan: Report Reviewed - General Mental Status: Awake and Alert, Forgetful, Vague, Intermittently Confused Attention: Intact Ability to Follow Directions: Fair Head/Neck Control: Good Speech Evaluation - Communication Primary Language: SUDANESE Communication: Yes: Aphasia Oral Expression Ability: Yes: Moderate Impairment - Speech Production Able to Make Needs Known: Yes: Moderately Impaired Intelligibility: Yes: WNL - Speech Characteristics Voice Loudness: Normal Voice Pitch: Yes: Normal Voice Phonatory-based Quality: Yes: Normal Speech Pattern: Impaired Nasal Resonance: Normal - Language/Auditory Comprehension Follows: Yes: 1 Stage Simple Commands - Language/Verbal Expression Able to Respond to Simple Queries: Yes: Moderately Impaired Able to Communicate Wants and Needs: Yes: Moderately Impaired Functional Communication Status: Yes: Moderately Impaired - Swallow Evaluation/Bedside Assessment Current Nutritional Intake: NPO Oral Secretions: Yes: WFL Dentition: Yes: Missing Teeth Facial Symmetry at Rest: Facial Droop Right Facial Symmetry on Retraction: Facial Droop Right Against Resistance Opening: Normal Against Resistance Closing: Normal Pucker Lips: Droops Right Smile: Droops Right Lingual Movement: Symmetric Lingual Speed of Movement: Normal Lingual Movement Strgth Against Opposition: Normal Lingual Movement Characteristics: Normal Velopharyngeal Movement: Normal Laryngeal Elevation: WFL Laryngeal Movement: Able to Palpate Bolus Size: WFL Labial Seal: WFL Chewing: WFL Oral Prep Time: WFL A-P Transit: WFL Timing of Swallow: WFL Coughing/Throat Clear: No Change in Voice: No Recommendations - Speech Evaluation, Impression/Plan Impression: Right [place] palsy with facial droop and right eye involvement - Disposition Discharge to: Home with Assist - Dysphagia Impressions/Plan Swallowing Skills: WF Dysphagia Impressions: No Impairment *Silent aspiration: cannot be R/O at bedside Dysphagia Treatment Plan: Labial Exercises Recommendations: Other (Pt's son given olga-motor facial exercises for improved right facial/eye fiunction) - Recommendations Diet Consistency: Regular Medication Administration: Whole with water Liquids: Thin Liquids (straw use if drooling)
== END 2018-04-02 13:00 | disposition home or self-care (01) | DRG 74 ==
LOC: JER 16:18 → JERBED 23:08
PROVIDERS: ADMIT Internal Medicine; ATTEND Internal Medicine
DX: G51.0 Bell's palsy (principal); N39.0 Urinary tract infection, site not specified; R47.01 Aphasia; R29.810 Facial weakness; E78.5 Hyperlipidemia, unspecified; I10 Essential (primary) hypertension
CPT/HCPCS: 36415; 70450-TC; 70496-TC; 71045-TC-FY; 80053; 81003; 81015; 82465; 82550; 82607; 83036; 83718; 83721; 83735; 84100; 84443; 84478; 84484; 85025; 85610; 86850; 86900; 86901; 93005; 93010; 93880-TC; 99285-25; J7030

== ENCOUNTER 2018-12-03 13:04 | Emergency (ER) | payer OTHER ==
[2018-12-03 13:17] VITALS: BMI 46.3
--- NOTE | 2018-12-03 13:48 | PDOC ---
History of Present Illness - General Chief Complaint: Edema Stated Complaint: PATIENT HERE FOR RT. LEG PAIN Time Seen by Provider: 12/03/18 13:38 History Source: Patient - History of Present Illness Occurred: reports: this morning Lower Extremity Pain Location: right: foot Past History - Past Medical History Allergies/Adverse Reactions: Allergies Allergy/AdvReac Type Severity Reaction Status Date / Time No Known Allergies Allergy Verified 12/03/18 15:24 Home Medications: Ambulatory Orders Calcium Carb/Vit D3/Minerals [Calcium +D & Min Chew Tab] 1 each PO DAILY Magnesium Hydrox 2400MG/30Ml [Milk Of Magnesia] 400 mg PO DAILY 03/30/12 Multivitamin [Multi-Day Vitamins] 1 each PO DAILY 03/30/12 Sertraline HCl [Zoloft] 50 mg PO DAILY 03/30/12 levETIRAcetam [Keppra Oral Solution -] 500 mg PO DAILY 03/30/12 Polyethylene Glycol 3350 [Miralax 255 gm Btl -] 17 gm PO DAILY #1 bottle Cefuroxime Axetil [Ceftin -] 500 mg PO Q12H #12 tablet 04/02/18 Lisinopril 5 mg PO DAILY #30 tablet 04/02/18 Polyvinyl Alcohol [Artificial Tears] 1 drop OU QID PRN #10 drops 04/02/18 predniSONE [Deltasone -] 40 mg PO DAILY #5 tablet 04/02/18 Acetaminophen [Tylenol -] 1,000 mg PO Q6H #100 tablet 12/03/18 CVA: Yes (and aneyurisms,TBI) COPD: No Dementia: Yes HTN: Yes Hypercholesterolemia: Yes - Immunization History Td Vaccination: Yes TDAP Vaccination: Yes Immunization Up to Date: No - Suicide/Smoking/Psychosocial Hx Smoking Status: No Smoking History: Never smoked Have you smoked in the past 12 months: No Number of Cigarettes Smoked Daily: 0 Information on smoking cessation initiated: No Hx Alcohol Use: No Drug/Substance Use Hx: No Substance Use Type: None Review of Systems - Review of Systems Constitutional: No: Chills, Fever, Malaise Respiratory: No: Shortness of Breath Cardiac (ROS): No: Chest Pain, Palpitations Musculoskeletal: Yes: Joint Pain, Joint Swelling *Physical Exam - Vital Signs Last Vital Signs Temp Pulse Resp BP Pulse Ox 97.6 F 106 H 16 141/72 98 12/03/18 13:14 12/03/18 13:14 12/03/18 13:14 12/03/18 13:14 12/03/18 13:14 - Physical Exam General Appearance: Yes: Appropriately Dressed. No: Apparent Distress HEENT: positive: Normal Voice Neck: positive: Supple Respiratory/Chest: positive: Lungs Clear, Normal Breath Sounds. negative: Respiratory Distress Cardiovascular: positive: Regular Rate, S1, S2 Extremity: positive: Swelling (diffusely to R foot/ankle w/ sig ttp to proximal aspect of lateral R foot, pedal pulses intact) ED Treatment Course - LABORATORY CBC & Chemistry Diagram: 12/03/18 14:15 12/03/18 14:25 - RADIOLOGY Radiology Studies Ordered: Category Date Time Status ANKLE & FOOT-RIGHT* [RAD] Stat Radiology 12/03/18 13:42 Ordered DUPLEX VASCUL US-1 LEG [US] Stat Ultrasound 12/03/18 13:42 Ordered Medical Decision Making - Medical Decision Making 12/03/18 13:43 67-year-old female, history of CVA, dementia, HTN, HLD, BIB [employer] for R ankle pain and swelling. neuropsychiatric aide states pt walks on her own at baseline and was in her usual state of health last night, but at 9 AM today when REAL ESTATE CLERK arrived for work,noticed that patient was limping. Pt told family she fell, but then told them she fell back in July of last year. Patient able to give some history here and states she feels well. Patient denies any f/c, malaise, CP, SOB or palpitations See exam ?cellulitis vs DVT (less likely), ?hx of trauma Tachy to 106 but in NAD w/ diffuse R foot/ankle swelling w/ ttp to lateral R foot -pain control -XR -US -labs -dispo pending 12/03/18 16:48 Labs unremarkable and US read as neg for DVT. XR w/ an avulsion fracture to proximal R 5th metatarsal which most likely explains symptoms. Webrill/Anselmo/ ortho shoe placed w/ crutches for weight bearing as tolerated. Ortho referral given 12/03/18 1 *DC/Admit/Observation/Transfer Diagnosis at time of Disposition: Foot fracture Qualifiers: Encounter type: initial encounter Fracture type: closed Laterality: right Qualified Code(s): S92.901A - Unspecified fracture of right foot, initial encounter for closed fracture - Discharge Dispostion Disposition: HOME Condition at time of disposition: Good - Prescriptions Prescriptions: Acetaminophen [Tylenol -] 1,000 mg PO Q6H #100 tablet - Referrals - Patient Instructions Printed Discharge Instructions: DI for Foot Fracture Additional Instructions: You have a fracture in your right foot. You had an Anselmo bandage placed and was given special orthopedic shoe to wear. Please use crutches for assistance w/ weight bearing as can be tolerated. Please follow-up with Dr. Givens of orthopedic in 1 week - Post Discharge Activity
[2018-12-03 14:36] LABS: BASO % 1.1 % (0-2.0); EOS % 2.1 % (0-4.5); HEMATOCRIT 42.6 % (32.4-45.2); HEMOGLOBIN 14.4 GM/dL (10.7-15.3); LYMPH % 32.2 % (8-40); MCH 31.1 pg (25.7-33.7); MCHC 33.9 g/dl (32.0-36.0); MEAN CELL VOLUME 91.7 fl (80-96); MEAN PLT VOLUME 8.1 fl (7.5-11.1); MONO % 6.9 % (3.8-10.2); NEUT % 57.7 % (42.8-82.8); PLATELET COUNT 287 K/MM3 (134-434); RBC 4.65 M/mm3 (3.60-5.2); RDW 14.1 % (11.6-15.6); WHITE BLOOD COUNT 9.6 K/mm3 (4.0-10.0)
[2018-12-03 15:02] LABS: ALBUMIN 3.7 g/dl (3.4-5.0); ALK PHOS 139 U/L (45-117); ANION GAP 11 MMOL/L (8-16); BILIRUBIN,TOTAL 0.6 mg/dL (0.2-1); BLOOD UREA NITROGEN 12 mg/dL (7-18); CALCIUM 8.9 mg/dL (8.5-10.1); CHLORIDE 106 mmol/L (98-107); CO2 26 mmol/L (21-32); CREATININE 0.9 mg/dL (0.55-1.3); GLUCOSE,RANDOM 164 mg/dL (74-106); POTASSIUM 3.3 mmol/L (3.5-5.1); SGOT/AST 44 U/L (15-37); SGPT/ALT 64 U/L (13-61); SODIUM 142 mmol/L (136-145); TOT PROT 7.8 g/dl (6.4-8.2)
[2018-12-03] MEDS ORDERED: ACETAMINOPHEN 325 MG TABLET (FP) PO ONE (16:47)
[2018-12-03] MEDS ORDERED: ACETAMINOPHEN 325 MG TABLET (FP) ONE (16:56)
--- NOTE | 2018-12-03 17:03 | PDOC ---
*Physical Exam - Vital Signs Last Vital Signs Temp Pulse Resp BP Pulse Ox 97.6 F 106 H 16 141/72 98 12/03/18 13:14 12/03/18 13:14 12/03/18 13:14 12/03/18 13:14 12/03/18 13:14 ED Treatment Course - LABORATORY CBC & Chemistry Diagram: 12/03/18 14:15 12/03/18 14:25 - ADDITIONAL ORDERS Additional order review: Laboratory Results 12/03/18 14:25 Sodium 142 Potassium 3.3 L Chloride 106 Carbon Dioxide 26 Anion Gap 11 BUN 12 Creatinine 0.9 Creat Clearance w eGFR 62.84 Random Glucose 164 H Calcium 8.9 Total Bilirubin 0.6 AST 44 H ALT 64 H Alkaline Phosphatase 139 H Total Protein 7.8 Albumin 3.7 12/03/18 14:15 RBC 4.65 MCV 91.7 MCHC 33.9 RDW 14.1 MPV 8.1 Neutrophils % 57.7 D Lymphocytes % 32.2 D Monocytes % 6.9 D Eosinophils % 2.1 D Basophils % 1.1 D - Medications Given in the ED: ED Medications Discontinued Medications Generic Name Dose Route Start Last Admin Trade Name Adrianq PRN Reason Stop Dose Admin Acetaminophen 650 mg 12/03/18 16:47 12/03/18 16:59 Tylenol - PO 12/03/18 16:48 650 mg ONCE ONE Administration Medical Decision Making - Medical Decision Making 12/03/18 17:02 Pt seen by Midlevel Provider under my direct supervision Ancillary studies reviewed I agree with plan as outlined by Midlevel Provider *DC/Admit/Observation/Transfer Diagnosis at time of Disposition: Foot fracture Qualifiers: Encounter type: initial encounter Fracture type: closed Laterality: right Qualified Code(s): S92.901A - Unspecified fracture of right foot, initial encounter for closed fracture - Discharge Dispostion Disposition: HOME Condition at time of disposition: Good - Prescriptions Prescriptions: Acetaminophen [Tylenol -] 1,000 mg PO Q6H #100 tablet - Referrals - Patient Instructions Printed Discharge Instructions: DI for Foot Fracture Additional Instructions: You have a fracture in your right foot. You had an Anselmo bandage placed and was given special orthopedic shoe to wear. Please use crutches for assistance w/ weight bearing as can be tolerated. Please follow-up with Dr. Givens of orthopedic in 1 week - Post Discharge Activity
[2018-12-03 17:18] VITALS: BP 135/85; PULSE 101; TEMP 97.4
== END 2018-12-03 17:18 | disposition home or self-care (01) ==
LOC: JER 13:04
DX: S92.901A Unspecified fracture of right foot, initial encounter for closed fracture (principal); I10 Essential (primary) hypertension; F03.90 Unspecified dementia, unspecified severity, without behavioral disturbance, psychotic disturbance, mood disturbance, and anxiety; E78.00 Pure hypercholesterolemia, unspecified; Z86.73 Personal history of transient ischemic attack (TIA), and cerebral infarction without residual deficits; Z86.79 Personal history of other diseases of the circulatory system; W18.39XA Other fall on same level, initial encounter; Y93.9 Activity, unspecified; Y92.9 Unspecified place or not applicable
CPT/HCPCS: 36415; 73610-TC-RT-FY; 73630-TC-RT-FY; 80053; 85025; 93971-TC; 99282-25